=== PATIENT | female | born 1980 | race Caucasian/White ===

== ENCOUNTER → 2016-12-23 | Outpatient (CLI) | payer MEDICAID ==
[~2016-12-23] MED LIST: DICLOFENAC SOD PO
--- NOTE | 2016-12-25 16:37 | RADIOLOGY REPORT PS360 ---
DIG MAMM-SCREEN RAMSES W/CAD CAD Screening COMPARISON: Digital mammograms 01/29/2012 INDICATION: No history sheet is provided. TECHNIQUE: Standard CC and MLO images were obtained. R2 CAD reviewed. FINDINGS: Moderate diffuse fiber glandular densities are seen in the central portions and upper outer quadrants of both breasts. The findings are fairly symmetrical bilaterally. There is no new or suspicious lesion in either breast and there are no suspicious microcalcifications. There are couple benign appearing castration is right breast. IMPRESSION: Moderate diffuse breast density with no suspicious lesion seen recommend yearly follow-up after the age of 40. BI-RADS CATEGORY: 2_Benign RECOMMENDED FOLLOWUP: 12M 12 MONTH FOLLOW-UP (A letter has been sent to the patient regarding results of the study.)
== END ==
LOC: RAD 16:31
DX: N64.4 Mastodynia (principal); N63.0 Unspecified lump in unspecified breast; Z12.31 Encounter for screening mammogram for malignant neoplasm of breast
CPT/HCPCS: G0202